=== PATIENT | female | born 1970 | race African-American/Black ===

== ENCOUNTER 2022-08-19 11:12 | Emergency (ER) | payer BC ==
[2022-08-19 11:56] LABS: Reticulocyte Count 10.8 % (0.5-1.5)
[2022-08-19 12:13] LABS: Hemoglobin 8.1 g/dL (12.0-16.0); Mean Corpuscular HGB CONC 35.3 g/dL (32.0-36.0); Mean Corpuscular Hemoglobin 35.3 pg (27.0-31.0); Mean Platelet Volume 7.9 fL (7.4-10.4); Platelet Count 231 10x3/uL (130-400); RBC Distribution Width 18.5 % (11.5-14.5); White Blood Cell (WBC) Count 14.8 10x3/uL (4.8-10.8)
[2022-08-19 12:17] LABS: ALT (SGPT) 15 U/L (8-55); AST (SGOT) 39 U/L (5-34); Albumin 3.6 g/dL (3.5-5.0); Alkaline Phosphatase 89 U/L (40-110); Anion Gap 12 mmol/L (10-20); BUN (Urea Nitrogen) 15 mg/dL (9.8-20.1); Bilirubin, Total 1.8 mg/dL (0.2-1.2); Calc. Creatinine Clearance 0 mL/min (70-130); Calcium 8.9 mg/dL (7.8-10.44); Carbon Dioxide 22 mmol/L (22-29); Chloride 109 mmol/L (98-107); Estimated GFR 66; Globulin 4.4 g/dL (2.4-3.5); Glucose 138 mg/dL (70-105); Lipase 54 U/L (8-78); Magnesium 1.8 mg/dL (1.6-2.6); Potassium 4.3 mmol/L (3.5-5.1); Sodium 139 mmol/L (136-145)
[2022-08-19 12:35] LABS: Band 3 % (5-11); Eosinophils 4 % (0-10); Lymphocytes 31 % (21-51); MDiff Complete? YES; Macrocytosis SLIGHT = 6-15 cells (100X) (0-5/hpf); Monocytes 7 % (0-10); Myelocyte 1 % (0-0); Neutrophil 53 % (42-75); Ovalocytes SLIGHT = 2-5 cells (100X) (0-1/hpf); Platelet Morphology Comment Appears Adequate; Poikilocytosis SLIGHT = 6-15 cells (100X) (0-5/hpf); Polychromasia MODERATE = 3-4 cells (100X) (0-2/hpf); Sickle Cells SLIGHT = 1-5 cells (100X) (None Seen)
[2022-08-19] MEDS ORDERED: Sterile Water 10 ML VIAL FS SCH (13:15)
[2022-08-19] MEDS ORDERED: Activase 2 MG VIAL CATH SCH (13:15)
[2022-08-19] MEDS ORDERED: HYDROmorphone 0.5 MG/0.5 ML SYRINGE ONE ×2 (15:06→16:18)
[2022-08-19] MEDS ORDERED: Promethazine HCl 6.25 MG in Sodium Chloride 0.9% 50 ML IVPB SCH (15:15)
== END 2022-08-19 17:08 | disposition home or self-care (01) ==
LOC: ERS 11:12
DX: D57.00 Hb-SS disease with crisis, unspecified (principal); D72.829 Elevated white blood cell count, unspecified
CPT/HCPCS: 36415; 71045; 80053; 83690; 83735; 83880; 84484; 85025; 85046; 93005; 96365; 96375; 96376; J1170; J2550; J2997